=== PATIENT | female | born 1990 | race Caucasian/White ===

== ENCOUNTER 2017-12-24 20:48 | Emergency (ER) ==
[2017-12-24 20:57] VITALS: BP 128/90; TEMP 97.2; BMI 20.6
--- NOTE | 2017-12-24 21:11 | ED.PDOC ---
General ED Provider: Dr. MINOR NELSON Chief Complaint: Behavioral Complaint Stated Complaint: Patient states that she is upset with herself and decided to swallow as half a razor blade. Complains of left lower quadrant abdominal pain. Denies any suicidal Ideation at this time. Time Seen by Physician: 21:11 Mode of Arrival: Walk-In Information Source: Patient, Police Exam Limitations: No limitations Nursing and Triage Documentation Reviewed and Agree: Yes Reviewed sepsis parameters & appropriate labs ordered?: No System Inflammatory Response Syndrome: Not Applicable Sepsis Protocol: For patient's 13 years and over: Temp is 96.8 and below OR 101 and greater Pulse >90 BPM Resp >20/minute Acutely Altered Mental Status Are patient's symptoms suggestive of a new infection, such as: -Pneumonia -Skin, Soft Tissue -Endocarditis -UTI -Bone, Joint Infection -Implantable Device -Acute Abdominal Infection -Wound Infection -Meningitis -Blood Stream Catheter Infection -Unknown System Inflammatory Response Syndrome: Not Applicable Review of Systems - Review Of Systems Constitutional: Reports: No symptoms Eyes: Reports: No symptoms Ears, Nose, Mouth, Throat: Reports: No symptoms Respiratory: Reports: No symptoms Cardiac: Reports: No symptoms GI: Reports: Abdominal pain : Reports: No symptoms Musculoskeletal: Reports: No symptoms Skin: Reports: No symptoms Neurological: Reports: No symptoms Endocrine: Reports: No symptoms Hematologic/Lymphatic: Reports: No symptoms All Other Systems: Reviewed and Negative Past Medical History - Past Medical History Previously Healthy: Yes Endocrine: Reports: None Cardiovascular: Reports: None Respiratory: Reports: None Hematological: Reports: None Gastrointestinal: Reports: None Genitourinary: Reports: None Neuro/Psych: Reports: None Musculoskeletal: Reports: None Cancer: Reports: None Last Menstrual Period: 2 WEEKS - Surgical History General Surgical History: Reports: None - Family History Family History: Reports: None - Social History Smoking Status: Current every day smoker, Light tobacco smoker Hx Substance Use: No Alcohol Screening: None - Immunizations Tetanus Shot up to Date: No (UNKNOWN) Physical Exam - Physical Exam Appearance: Thin Pain Distress: Mild Eyes: MARY, EOMI, Conjunctiva clear ENT: Ears normal, Nose normal, Oropharynx normal Respiratory: Airway patent, Breath sounds clear, Breath sounds equal, Respirations nonlabored Cardiovascular: RRR, Pulses normal, No rub, No murmur GI/: Soft, No masses, Bowel sounds normal, No Organomegaly, Tender (Mild tenderness to palpation on the left lower quadrant ) Musculoskeletal: Normal strength, ROM intact, No edema, No calf tenderness Skin: Warm, Dry, Normal color Neurological: Sensation intact, Motor intact, Reflexes intact, Cranial nerves intact, Alert, Oriented Psychiatric: Affect appropriate, Mood appropriate Interpretation - Radiology Interpretation Radiology Interpretation By: Radiologist Radiology Results: Positive Exam Interpreted: CT Scan Physician Notification - Case Discussed Physician Notified: Dr. Hutchins Time of Notification: 22:30 (Get A UDS prior and call back. WIll needs to be intubated for airway protection.) Critical Care Note - Critical Care Note Total Time (mins): 0 Comments: discussed risk of from GI bleed and GI sepsis as a result of intestinal laceration. patient accepts and understands the risks and want to leave anyway. Course - Course Hematology/Chemistry: 12/24/17 21:15 12/24/17 21:15 Orders, Labs, Meds: Lab Review 12/24/17 12/24/17 12/24/17 21:15 21:15 21:18 WBC 9.85 RBC 3.91 L Hgb 12.0 Hct 35.9 L MCV 91.8 MCH 30.7 MCHC 33.4 RDW Coeff of Dereck 12.9 Plt Count 245 Immature Gran % (Auto) 0.3 Neut % (Auto) 60.0 Lymph % (Auto) 29.7 Motley % (Auto) 7.4 Eos % (Auto) 1.9 Baso % (Auto) 0.7 Immature Gran # (Auto) 0.0 Neut # (Auto) 5.9 Lymph # (Auto) 2.9 Motley # (Auto) 0.7 Eos # (Auto) 0.2 Baso # (Auto) 0.1 Sodium 140 Potassium 3.9 Chloride 109 H Carbon Dioxide 20 L Anion Gap 14.9 BUN 19 H Creatinine 0.77 Estimated GFR (MDRD) 91.00 BUN/Creatinine Ratio 24.67 Glucose 115 H Calcium 8.7 Total Bilirubin 0.2 AST 35 ALT 91 H Alkaline Phosphatase 63 Total Protein 6.7 Albumin 3.5 Globulin 3.2 Albumin/Globulin Ratio 1.09 Serum , Qual Negative Orders Category Date Time Status ED IV/MEDIPORT/POWERPORT .ONCE EMERGENCY 12/24/17 22:02 Ordered CBC W/ AUTO DIFF Stat LAB 12/24/17 22:02 Ordered COMPREHENSIVE METABOLIC PANEL Stat LAB 12/24/17 22:03 Ordered SERUM Stat LAB 12/24/17 21:18 Completed URINE DRUG SCREEN (RAPID FOR ED) [DRUG SCREEN, URINE, LAB 12/24/17 22:35 Uncollected RAPID] Stat 0.9 % Sodium Chloride [Saline Flush] MEDS 12/24/17 22:02 Ordered 1 syr IVF PRN PRN Pantoprazole Sodium [Protonix IV] MEDS 12/24/17 22:02 Stat 80 mg IVP ONCE STA SODIUM CHLORIDE 0.9% @ 1,000 MLS/HR(1,000ml) MEDS 12/24/17 22:07 Ordered Sodium Chloride 0.9% [Sodium Chloride] 1,[address] ABDOMEN/PELVIS WO CONTRAST Stat RADS 12/24/17 21:[address] CHEST W/O CONTRAST Stat RADS 12/24/17 21:05 Taken Medications Generic Name Dose Route Start Last Admin Trade Name Freq PRN Reason Stop Dose Admin Sodium Chloride 1,000 mls @ 1,000 mls/hr 12/24/17 22:07 Sodium Chloride IV 12/24/17 23:06 BOLUS STA Sodium Chloride 1 syr 12/24/17 22:02 Saline Flush IVF PRN PRN To flush IV Discontinued Medications Generic Name Dose Route Start Last Admin Trade Name Freq PRN Reason Stop Dose Admin Pantoprazole Sodium 80 mg 12/24/17 22:02 Protonix Iv IVP 12/24/17 22:03 ONCE STA Vital Signs: Temp Pulse Resp BP Pulse Ox 12/24/17 20:50 97.2 F L 99 H 20 128/90 100 Departure - Departure Time of Disposition: 22:47 Disposition: AMA Discharge Problem: Foreign body in alimentary tract Qualifiers: Encounter type: initial encounter Qualified Code(s): T18.9XXA - Foreign body of alimentary tract, part unspecified, initial encounter Condition: Stable Pt referred to PMD for follow-up: No IPMP verified?: No Additional Instructions: Return if worse. Allergies/Adverse Reactions: Allergies No Known Allergies Allergy (Unverified 12/24/17 21:00) Home Medications: Ambulatory Orders 1 [No Reported Medications] 12/24/17 Disposition Discussed With: Patient, Family
[2017-12-24] MEDS ORDERED: PROTONIX IV IVP STA (22:02)
[2017-12-24] MEDS ORDERED: SODIUM CHLORIDE 1,000 ML IV STA (22:07)
--- NOTE | 2017-12-24 22:07 | CT ---
EXAM: CT abdomen pelvis without intravenous contrast 12/24/2017. Sagittal and coronal reformatted i magejake obtained HISTORY: Swallowed razor blade COMPARISON: None. FINDINGS: The liver, gallbladder, adrenal glands and kidneys show no acute process. The spleen and pancreas show no acute abnormality. Metallic density is present within the stomach. This likely rep resents the razor blade described in the clinical history. Surgical consultation would be of benefit . This is located within the gastric lumen. There is no free air or free fluid. Normal appendix. Unremarkable urinary bladder. IMPRESSION: Metallic density foreign body is located within the gastric lumen. This likely represen ts the razor blade described in the clinical history. Surgical consultation would be of benefit. Abdominal radiographs may also be of benefit to further visualize this structure. Technically limited examination due to the lack of intravenous contrast. No free air or free fluid.
--- NOTE | 2017-12-24 22:08 | CT ---
EXAM: CT scan thorax without contrast HISTORY: Razor blade ingestion COMPARISON: None. FINDINGS: Contiguous axial images obtained through the thorax without contrast utilizing 5-mm collim ation. Sagittal and coronal reconstructions were imaged and reviewed. The thoracic inlet is unremark able. There is no evidence of mediastinal or axillary lymphadenopathy . The heart is normal in size without pericardial effusion. The lungs are clear bilaterally. There is a metallic foreign body no kashif within the upper body of the stomach. IMPRESSION: No acute intrathoracic findings. Metallic foreign body within the upper body of the stomach
== END 2017-12-24 22:45 | disposition left against medical advice (07) ==
LOC: ED 20:48
DX: T18.9XXA Foreign body of alimentary tract, part unspecified, initial encounter (principal); R10.32 Left lower quadrant pain; F17.210 Nicotine dependence, cigarettes, uncomplicated
CPT/HCPCS: 36415; 80053; 84703; 85025; 99284